=== PATIENT | female | born 1960 | race Caucasian/White ===

== ENCOUNTER 2024-08-02 11:54 | Inpatient (IN) | payer BC ==
[~2024-08-02] VITALS: Ht 149.9 cm; Wt 50.5 kg
[~2024-08-02 11:54] MED LIST: DOCU250C89 PO; GABA100C PO; LUBI24CA5 PO; SERT-153 PO
--- NOTE | 2024-08-02 12:04 | Physician Documentation ---
History of Present Illness ~ Stated Complaint: ARM LAC 5149 Time Seen by MD: 11:59 HPI 64-year-old female, noncompliant with her medications for psychiatric disease, brought in on 5150 legal called for suicidal ideation and attempt. She reports fallen with a head strike. Complains of head pain. She also reports that there is a laceration to the dorsum of her left forearm. She denies that being self inflicted. Denies any other somatic complaints such as chest pain, difficulty breathing, nausea, vomiting, diarrhea, abdominal pain. Social history unknown at this time Medication Reconciliation Allergies: Coded Allergies: Sulfa(Sulfonamide Antibiotics) (Verified Allergy, Mild, RASH, 03/03/12) Papaya (Verified Adverse Reaction, Severe, ANAPHYLACTIC, 03/03/12) Uncoded Allergies: BEES/WASPS (Adverse Reaction, Severe, ANAPHYLACTIC CARRIES EPI-PEN, 03/03/12) Scheduled Benztropine Mesylate (Benztropine Mesylate), 1 TAB PO DAILY, (Reported) Buspirone HCl (Buspirone HCl), 1 TAB PO TID, (Reported) Cariprazine Hydrochloride (Vraylar), 1 CAP PO DAILY, (Reported) Diazepam (Diazepam), 1-2 TAB PO DAILY, (Reported) Docusate Sodium (Stool Softener), 250 MG PO QAM, (Reported) Docusate Sodium (Docusate Sodium), 1 CAP PO Q12H, (Reported) Gabapentin (Neurontin), 200 MG PO BID, (Reported) Lisinopril (Lisinopril), 1 TAB PO DAILY, (Reported) Lubiprostone (Amitiza), 24 MCG PO QAM, (Reported) Metoprolol Tartrate (Metoprolol Tartrate), 0.5 TAB PO BID, (Reported) Sertraline HCl (Sertraline HCl), 50 MG PO QPM, (Reported) Sertraline Hcl (Zoloft), 1 TAB PO DAILY, (Reported) Sertraline Hcl* (Zoloft*), 1 TAB PO DAILY, (Reported) Triamterene/Hydrochlorothiazid (Triamterene-Hctz 37.5-25 Mg Tb), 1 TAB PO DAILY, (Reported) [vit d], 1,000 PO DAILY, (Reported) Scheduled PRN Diazepam (Diazepam), 1 TAB PO TID PRN PRN for anxiety, (Reported) Review of Systems ROS 10 point review of systems was performed and unless noted above in HPI is ne gative for acute process/complaint. Physical Exam Physical Exam GENERAL: Awake, alert, oriented, GCS 15, no apparent distress, non-toxic appearing, answers questions, follows commands appropriately. HEENT: Atraumatic, normocephalic, pupils equal, extraocular muscles intact, sclerae anicteric, mucus membranes moist, oropharynx is clear, no stridor. NECK: supple, full active range of motion, trachea midline, no thyromegaly, no lymphadenopathy, no JVD. CARDIOVASCULAR: regular rate/rhythm, no murmurs/gallops/rubs, Pulses are 2+ in all extremities and symmetric. Capillary refill less than 2 seconds. PULMONARY: Nonlabored, good air movement ,no respiratory distress, speaking in full sentences, clear to auscultation bilaterally, no wheezing, no ronchi, no rales, no accessory muscle use. GASTROINTESTINAL: Soft, non-tender, non-distended, normal active bowel sounds, no organomegaly, no pulsatile masses, no CVA tenderness. NEUROLOGIC: Lucid with normal mental status. Normal facial symmetry. Moves all extremities symmetrically and with purpose. No truncal ataxia. Speech is fluid without evidence of dysarthria or aphasia, no focal deficits appreciated. MUSCULOSKELETAL: There is full range of motion of all extremities. There is no joint pain or joint swelling or joint erythema. There is no muscle pain or tenderness or swelling. EXTREMITIES: warm, well-perfused, no cyanosis, no clubbing, no edema, no acute deformities. Skin: warm, dry, no rashes or lesions, no jaundice, no petechiae orpurpura. No ecchymosis. PSYCHIATRIC: Normal affect, normal insight, normal concentration. Focused exam: [] 2.5 cm laceration to the dorsum of her left forearm, no active bleeding, no contamination. Neurovascularly intact distally to the site of injury. No tendon involvement. Full range of motion of the wrist. Procedures Laceration : Length (cm): 2 Anesthesia: Lidocaine w/ Epi Volume Anesthetic (mls): 4 Prep: cholorprep, irrigated by nurse Undermining: none Repaired: skin Wound Repaired With: sutures Suture Size/Type: 3-0 Number of Superficial Sutures: 3 Progress Results/Orders Results/Orders Orders - SYED RIVERA DO Ct Head (08/02/24 12:46) Med Rec (08/02/24 11:59) 1799.11 (08/02/24 11:59) Close Observation Level (08/02/24 11:59) Covid19 Binax Poc Result Entry (08/02/24 11:59) Substance Use Navigator (08/02/24 11:59) Regular Diet (08/02/24 Dinner) Completed Orders - SYED RIVERA DO Ct Head (08/02/24 12:46) Lidocaine 1% W/Epi 1:100,000 (Xylocaine (08/02/24 12:00) Cbc/Diff (08/02/24 11:59) Drug Screen, Urine (08/02/24 11:59) Ethanol (08/02/24 11:59) BMP (08/02/24 11:59) Ua With Microscopic (08/02/24 12:44) Lorazepam Tablet (Ativan Tablet) (08/02/24 14:10) Medications Received in ER Medications (Trade) Dose Ordered Sig/Latoya Route PRN Reason Start Time Stop Time Status Last Admin Dose Admin (Xylocaine 1%-EPI 1:100,000) 20 ml ONCE ONCE SQ 08/02/24 12:00 08/02/24 12:15 DC 08/02/24 14:13 20 ML (Ativan tablet) 1 mg ONCE ONCE PO 08/02/24 14:10 08/02/24 14:11 DC 08/02/24 14:12 1 MG Vital Signs 08/02/24 08/02/24 12:23 13:13 Temp 98.2 Pulse 85 Resp 14 16 B/P (MAP) 107/68 Pulse Ox 99 O2 Flow Rate 0 Laboratory Tests Test 08/02/24 12:20 08/02/24 12:44 White Blood Count 12.0 H Red Blood Count 4.33 Hemoglobin 12.9 Hematocrit 37.9 Mean Corpuscular Volume 87.5 Mean Corpuscular Hemoglobin 29.8 Mean Corpuscular Hemoglobin Concent 34.1 Red Cell Distribution Width 13.5 Platelet Count 285 Mean Platelet Volume 7.7 Neutrophils (%) (Auto) 91.0 H Lymphocytes (%) (Auto) 4.0 L Monocytes (%) (Auto) 4.6 Eosinophils (%) (Auto) 0.1 Basophils (%) (Auto) 0.3 Neutrophils # (Auto) 10.9 H Lymphocytes # (Auto) 0.5 L Monocytes # (Auto) 0.6 Eosinophils # (Auto) 0.0 Basophils # (Auto) 0.0 CBC Comment Sodium Level 138 Potassium Level 3.1 L Chloride Level 99 Carbon Dioxide Level 32.4 H Anion Gap 7 L Blood Urea Nitrogen 20 H Creatinine 1.04 H Estimated GFR/1.73 m2 53 BUN/Creatinine Ratio 19.2 Glucose Level 156 H Calcium Level 9.0 Albumin 3.9 Chemistry Comments Ethyl Alcohol Level < 10 SARS-CoV-2 Antigen (Rapid) Negative Urine Specimen Description Cln catch midstream Urine Color Yellow Urine Clarity Slightly cloudy Urine pH 6.0 Urine Specific Massey 1.015 Urine Protein Negative Urine Glucose (UA) Negative Urine Ketones Negative Urine Occult Blood Trace-intact Urine Nitrite Negative Urine Bilirubin Negative Urine Urobilinogen 0.2 Urine Leukocyte Esterase Moderate H Urine RBC 0-2 Urine WBC 5-10 H Urine Squamous Epithelial Cells Moderate Urine Bacteria 1+ Urine Mucus Moderate Volume Urine Centrifuged 10 ml Urine Comment Urine Opiates Screen Negative Urine Methadone Screen Negative Urine Fentanyl Screen Negative Urine Barbiturates Screen Negative Urine Phencyclidine Screen Negative Urine Amphetamines Screen Negative Urine Benzodiazepines Screen Positive Urine Cocaine Screen Negative Urine Cannabinoids Screen Negative Drug Screen Comment Medical Decision Making Findings Facility Status: ED Holds, [facility] process The plan was discussed with the patient, who demonstrates clear understanding of the plan and is in agreement with the plan unless otherwise noted in the chart. All questions have been answered, all concerns were addressed unless otherwise documented. I was available throughout their ED stay for frequent reassessment and questions. Differential Diagnoses (considered and possible or likely): [Gravely disabled, suicidal ideation, suicidal attempt, forearm laceration, ground level fall, acute traumatic pain, closed head injury, concussion, subdural, subarachnoid] ??Differential Diagnoses (considered and unlikely, not requiring evaluation currently): [Unlikely to represent any other acute somatic complaint] MDM Data Please see HPI for the following: Independent Historians and external Records Review. Historian: [Patient] Independent Historians: ?[Mental health, EMS, record review] Medication Management: [Reviewed medication list] Social History and determinants: [Reviewed] Please see the body of the note for the following: Any independent interpretations of ECG, imaging studies. All vitals signs/haemodynamics, ordered tests were independently reviewed and interpreted by myself. Nursing triage complaint and vitals reviewed, additional nursing notes were reviewed as available and I agree unless otherwise noted or documented in contradiction in the chart Vital Signs: Independently reviewed Labs: Independently interpreted Imaging: Independently interpreted Old Medical Records: Independently reviewed, see HPI for relevant summary and information Pulse Oximetry: [99%] interpreted as [normal on room air] by me [Remote Broadcast Engineer: [Regular Rate, Regular rhythm, no ectopy, on EMS monitor. NSR] reviewed and interpreted by me] Additionally notably showing: [Hemodynamics reviewed. The patient is not tachycardic, not hypoxic, no evidence of respiratory distress. No evidence of hypotension. Laboratory workup is essentially unremarkable except for benzodiazepines which are iatrogenic. UA is contaminated a nondiagnostic for UTI. Imaging was obtained. CT head shows no acute intracranial process.] Tests considered but not ordered include: [Not applicable] Social Determinants of Health Impact: Patient was evaluated in [facility] [place] access to healthcare due to below par ratio of patient to medical providers. [] Comorbid Conditions Impacting Present Evaluation and Care/Treatment: [Psychiatric disease] Management Discussions with other Healthcare Providers: [Mental health professionals] Treatment and Disposition Medication Management (Given or considered): [Anxiety palliation]. See EMR for details Consideration for Hospitalization/Escalation/Deescalation of Care: Admission for observation has been considered, [however the patient is able to tolerate p.o., their symptoms are controlled, they are able to rely on oral medications, and their chief complaint/diagnosis can be managed on outpatient basis.] ?ED Course:?[Laceration was repaired. Patient is medically cleared for psychiatric evaluation.] ?Shared decision making:?[] Code status:?FULL Please see the full Electronic Medical Record for full details of nursing documentation, medications list, other records of complete past medical history and conditions, vital signs, laboratory studies, and any radiologic study interpretations by radiologists. Portions of this note were completed using Crystal IS dictation software and as a result there may exist minor errors in spelling. I have reviewed elements of past family and social history and agree as included in note. Departure Disposition: 30 STILL A PATIENT Impression: Primary Impression: Suicidal ideation Additional Impressions: Psychiatric disturbance Fall Closed head injury Forearm laceration Condition: Improved Referrals: NO PRIMARY CARE PROVIDER (PCP) Signature Scribe Signature: No scribe Attestation: This note accurately reflects clinical decisions, work performed by myself, DO MIGUEL Grande NICHOLAS M DO August 02, 2024 12:04
[2024-08-02 12:35] LABS: BASOPHILS % (AUTO) 0.3 % (0-1); EOSINOPHILS % (AUTO) 0.1 % (0-6); HEMATOCRIT 37.9 % (35.0-45.0); HEMOGLOBIN 12.9 g/dl (12.0-16.0); LYMPHOCYTES # (AUTO) 0.5 X10'3 (1.1-4.8); MEAN CORPUSCULAR HEMOGLOBIN 29.8 PG (27.0-31.0); MEAN CORPUSCULAR HGB CONC 34.1 g/dL (33.0-36.5); MEAN CORPUSCULAR VOLUME 87.5 FL (78-98); MEAN PLATELET VOLUME 7.7 FL (7.4-10.4); MONOCYTES # (AUTO) 0.6 X10'3 (0-0.9); MONOCYTES % (AUTO) 4.6 % (2-12); NEUTROPHILS # (AUTO) 10.9 X10'3 (1.8-7.7); PLATELET COUNT 285 X10'3 (140-440); RED BLOOD COUNT 4.33 X10'6 (4.20-5.60); RED CELL DISTRIBUTION WIDTH 13.5 % (11.5-14.5)
[2024-08-02 12:45] LABS: ALBUMIN 3.9 G/DL (3.4-5.0); ANION GAP 7 (8-16); BLOOD UREA NITROGEN 20 MG/DL (7-18); BUN/CREATININE RATIO 19.2 (10.0-20.0); CHLORIDE 99 MMOL/L (99-107); CREATININE 1.04 MG/DL (0.40-0.90); ETHANOL < 10 MG/DL (<10); GLUCOSE 156 MG/DL (70-104); POTASSIUM 3.1 MMOL/L (3.5-5.1); SODIUM 138 MMOL/L (135-145); TOTAL CARBON DIOXIDE 32.4 MMOL/L (24-32); eCRCL 37 ML/MIN; eGFR 53 ML/MIN
--- NOTE | 2024-08-02 13:04 | RADIOLOGY REPORT ---
EXAM: CT CT HEAD HISTORY: fall with head strike COMPARISON: None TECHNIQUE: Axial images of the head were obtained and reformatted in coronal and sagittal planes. All CT scans at this medical facility are performed using dose modulation techniques as appropriate t o a performed exam including the following: Automated exposure control was utilized; adjustment of th e MA and/or KV according to patient size; and use of iterative reconstruction technique. CT Dose: CTDI volume is 54 mGy. Dose-length product is 1102 mGy*cm FINDINGS: There is no evidence of acute intracranial hemorrhage, mass, mass effect midline shift. There is no h ydrocephalus or extra-axial fluid collection. Smith-white matter differentiation is maintained. There is a retention cyst in the right maxillary sinus. The remaining visualized paranasal sinuses an d mastoid air cells are clear. The calvarium is intact. IMPRESSION: 1. No acute intracranial process. HS:Y
[2024-08-02 13:07] LABS: BILIRUBIN,URINE NEGATIVE (Neg); COLOR,URINE YELLOW (Yellow); GLUCOSE, URINE NEGATIVE (Neg); KETONES,URINE NEGATIVE (Neg); LEUKOCYTE ESTERASE ,URINE MODERATE (Neg); NITRITES, URINE NEGATIVE (Neg); OCCULT BLOOD,URINE TRACE-INTACT (Neg); PROTEIN,URINE NEGATIVE (Neg); UROBILINOGEN,URINE 0.2 E.U/dL (0.2-1.0)
[2024-08-02 13:12] LABS: CLARITY,URINE SLIGHTLY CLOUDY (Clear); UA COLLECTION TYPE CLN CATCH MIDSTREAM
[2024-08-02] MEDS ORDERED: DOCU250C15 PO (13:12)
[2024-08-02] MEDS ORDERED: TRIA1TAB3 PO (13:12)
[2024-08-02] MEDS ORDERED: LISI20TA28 PO (13:12)
[2024-08-02] MEDS ORDERED: DIAZ10TA5 PO (13:12)
[2024-08-02] MEDS ORDERED: SERT100T PO (13:12)
[2024-08-02] MEDS ORDERED: BENZ1TAB78 PO (13:12)
[2024-08-02] MEDS ORDERED: METO25TA6 PO (13:12)
[2024-08-02] MEDS ORDERED: CARI3CAP PO (13:12)
[2024-08-02] MEDS ORDERED: SERT25TA PO (13:12)
[2024-08-02] MEDS ORDERED: DIAZ10TA4 PO (13:12)
[2024-08-02] MEDS ORDERED: vit d PO (13:12)
[2024-08-02] MEDS ORDERED: BUSP10TA3 PO (13:12)
[2024-08-02 13:14] LABS: BACTERIA,URINE 1+ /HPF (Neg); MUCUS STRANDS MODERATE /LPF (Neg); RBC,URINE 0-2 /HPF (0-2); SQUAMOUS EPITHELIAL CELL,UR MODERATE /LPF (FEW)
[2024-08-02 13:18] LABS: URINE AMPHETAMINE SCREEN NEGATIVE (Neg); URINE BARBITUATE SCREEN NEGATIVE (Neg); URINE BENZODIAZEPINES SCREEN POSITIVE (Neg); URINE CANNABINOID SCREEN NEGATIVE (Neg); URINE COCAINE SCREEN NEGATIVE (Neg); URINE METHADONE SCREEN NEGATIVE (Neg); URINE OPIATE SCREEN NEGATIVE (Neg); URINE PHENCYCLIDINE SCREEN NEGATIVE (Neg)
[2024-08-02] MEDS: LORazepam 1 MG tablet PO ONE (14:12)
[2024-08-02] MEDS: LIDOcaine 1% W/epiNEPHrine 1:100,000 20ml vial SQ ONE (14:13)
[2024-08-02] MEDS ORDERED: GABA300T28 PO (20:06)
[2024-08-02] MEDS ORDERED: GABA300C PO (21:36)
[2024-08-02] MEDS ORDERED: SERT-433 PO (21:38)
[2024-08-02] MEDS: metoprolol tartrate 12.5mg (1/2 tablet) PO SCH (22:06)
[2024-08-02] MEDS: busPIRone 5mg tablet PO SCH (22:07)
[2024-08-02] MEDS: docusate sod 250mg capsule PO SCH (22:07)
[2024-08-02] MEDS: sertraline 25mg tablet PO SCH (22:07)
[2024-08-03] MEDS: lisinopril 20mg tablet PO SCH (08:00)
[2024-08-03] MEDS: benztropine 1mg tablet PO SCH (08:00)
[2024-08-03] MEDS: gabapentin 300mg capsule PO SCH (08:00)
[2024-08-03] MEDS: Cariprazine Hydrochloride (Vraylar) 3 MG CAPSULE PO SCH (08:00)
[2024-08-03] MEDS: triamterene/HCTZ 37.5/25mg tablet PO SCH (08:00)
[2024-08-03] MEDS: diazepam 5mg tablet PO PRN (20:15)
[2024-08-04] MEDS: Melatonin 3mg tablet PO ONE (01:17)
[2024-08-04] MEDS: haloperidol lactate 5mg/ml inj IM ONE (01:20)
[2024-08-04] MEDS ORDERED: CefTRIAXone 1000mg IM Kit (w/lidocaine diluent) IM ONE (13:20)
[2024-08-04] MEDS ORDERED: magnesium Cl slow-release 64mg tablet PO PRN (13:50)
[2024-08-04] MEDS ORDERED: ondansetron/PF 4mg/2ml inj IV PRN (13:50)
[2024-08-04] MEDS ORDERED: magnesium hydroxide 30ml (MOM) UD suspension PO PRN (13:50)
[2024-08-04] MEDS ORDERED: potassium Cl 40MEQ/1/2NS 520ml 520 ML IV PRN (13:50)
[2024-08-04] MEDS ORDERED: potassium Cl 20 mEq SR tablet PO PRN (13:50)
[2024-08-04] MEDS ORDERED: magnesium sulf-water 2g/50mL 50 ML IV PRN (13:50)
[2024-08-04] MEDS ORDERED: mag hydrox/Alum hydrox/simeth 30ml oral suspension PO PRN (13:50)
[2024-08-04] MEDS ORDERED: acetaminophen 325mg tablet PO PRN (13:50)
[2024-08-04] MEDS ORDERED: magnesium sulf-water 4G/100mL 100 ML IV PRN (13:50)
--- NOTE | 2024-08-04 13:52 | HISTORY AND PHYSICAL ---
History & Physical Providers to CC ~ History of Present Illness Reason for Admit\Complaint: Suicidal ideation History of Present Illness History of present illness patient is a 64-year-old that is unable to give any significant history just keeps complaining about suprapubic pain pressure difficulty in ambulation denies any dysuria or polyuria has suicidal thoughts and wants to actively kill herself. Though she does not have a plan of how she is going to do this. Allergies: Coded Allergies: Sulfa(Sulfonamide Antibiotics) (Verified Allergy, Mild, RASH, 03/03/12) Papaya (Verified Adverse Reaction, Severe, ANAPHYLACTIC, 03/03/12) Uncoded Allergies: BEES/WASPS (Adverse Reaction, Severe, ANAPHYLACTIC CARRIES EPI-PEN, 03/03/12) Home Medications Home Medications Active Reported Lisinopril 20 Mg Tablet 0.5 Tab PO DAILY 30 Days Sertraline HCl 50 Mg Tablet 1.5 Tab PO HS [vit d] 1,000 PO DAILY Docusate Sodium 250 Mg Capsule 1 Cap PO Q12H 30 Days Triamterene-Hctz 37.5-25 Mg Tb (Triamterene/Hydrochlorothiazid) 37.5 Mg-25 Mg Tablet 1 Tab PO DAILY Metoprolol Tartrate 25 Mg Tablet 0.5 Tab PO BID Benztropine Mesylate 1 Mg Tablet 1 Tab PO DAILY Diazepam 10 Mg Tablet 1 Tab PO BID PRN Vraylar (Cariprazine Hydrochloride) 3 Mg Capsule 1 Cap PO DAILY Buspirone HCl 10 Mg Tablet 1 Tab PO TID Exam Vitals: Vital Signs Date Time Temp Pulse Resp B/P (MAP) Pulse Ox O2 Delivery O2 Flow Rate FiO2 08/04/24 10:08 98.0 92 16 94/61 (72) 99 0 General: Patient is alert and oriented x2 in no acute distress lying down comfortably speaking in full sentences HEENT normocephalic nontraumatic head PERRLA. EOMI. CVS first and second heart sounds are regular rate rhythm no murmurs gallops or rubs Respiratory system is clear to auscultate bilaterally no rales rhonchi crackles or wheezing Abdomen is soft scaphoid benign bowel sounds are positive nontender nondistended Extremities no clubbing cyanosis or edema Neurological exam patient is not willing to follow any commands but she is moving all four extremities without difficulty Diagnostic Data Last Recorded Lab Results: 08/02/24 1220 08/02/24 1220 Additional Plan A/P -UTI CON'T ROCEPHIN we will switch to oral antibiotics in a.m. CX PENDING --ALOC SI PSYCH CONSULT P Patient is put on a 1799 hold Sitter is in place Patient is medically cleared Pending [facility] DVT PROPHYLAXIS Date of Service: August 04, 2024 Billing Provider: SRIDHAR OCASIO MD Common Visit Codes: [id number] INP/OBS CARE (HIGH) SRIDHAR OCASIO MD August 04, 2024 13:52
[2024-08-04] MEDS: CefTRIAXone 2gm/D5W 50ml BAG 50 ML IV ONE (16:33)
[2024-08-04] MEDS: normal saline 1000ml 1,000 ML IV ONE (16:33)
[2024-08-04] MEDS: OLANZapine **IM** 10 mg inj. IM ONE (16:34)
[2024-08-04 16:54] LABS: BASOPHILS % (AUTO) 0.3 % (0-1); EOSINOPHILS % (AUTO) 0.3 % (0-6); HEMATOCRIT 34.9 % (35.0-45.0); HEMOGLOBIN 12.1 g/dl (12.0-16.0); LYMPHOCYTES # (AUTO) 0.7 X10'3 (1.1-4.8); LYMPHOCYTES % (AUTO) 9.2 % (21-51); MEAN CORPUSCULAR HEMOGLOBIN 30.3 PG (27.0-31.0); MEAN CORPUSCULAR HGB CONC 34.6 g/dL (33.0-36.5); MEAN CORPUSCULAR VOLUME 87.7 FL (78-98); MEAN PLATELET VOLUME 7.7 FL (7.4-10.4); MONOCYTES # (AUTO) 0.6 X10'3 (0-0.9); MONOCYTES % (AUTO) 7.6 % (2-12); NEUTROPHILS # (AUTO) 6.2 X10'3 (1.8-7.7); NEUTROPHILS % (AUTO) 82.6 % (42-75); PLATELET COUNT 241 X10'3 (140-440); RED BLOOD COUNT 3.98 X10'6 (4.20-5.60); RED CELL DISTRIBUTION WIDTH 13.2 % (11.5-14.5); WHITE BLOOD COUNT 7.5 X10'3 (4.5-11.0)
[2024-08-04 17:11] LABS: ALANINE AMINOTRANSFERASE 22 U/L (12-78); ALBUMIN 3.1 G/DL (3.4-5.0); ALBUMIN/GLOBULIN RATIO 1.2 (1.1-1.5); ALKALINE PHOSPHATASE 72 IU/L (46-116); ANION GAP 9 (8-16); ASPARTATE AMINO TRANSFERASE 51 U/L (10-37); BILIRUBIN,TOTAL 0.4 MG/DL (0.1-1.0); BLOOD UREA NITROGEN 13 MG/DL (7-18); BUN/CREATININE RATIO 17.1 (10.0-20.0); CALCIUM 7.5 MG/DL (8.5-10.1); CHLORIDE 105 MMOL/L (99-107); CREATININE 0.76 MG/DL (0.40-0.90); GLUCOSE 82 MG/DL (70-104); MAGNESIUM 1.9 MG/DL (1.5-2.4); SODIUM 140 MMOL/L (135-145); TOTAL PROTEIN 5.6 G/DL (6.4-8.2); eCRCL 51 ML/MIN; eGFR 77 ML/MIN
[2024-08-04 17:19] LABS: POTASSIUM 2.9 MMOL/L (3.5-5.1)
[2024-08-04] MEDS: K and/or MAG REPLACEMENT MC SCH (19:26)
[2024-08-04 20:00] VITALS: RESP 14
[2024-08-04] MEDS: potassium Cl 20 mEq SR tablet PO PRN (21:25)
[2024-08-04] MEDS: docusate sod 100mg capsule PO SCH (21:42)
[2024-08-04] MEDS: ringers solution, lacted 1,000 ML IV ONE (21:45)
[2024-08-04 22:00] VITALS: BP 131/75; PULSE 86; RESP 18; TEMP 98; O2SAT 100
[2024-08-05] VITALS (8 sets, daily range): BP systolic 89–129; BP diastolic 52–78; PULSE 69–93; RESP 14–18; TEMP 98.1–98.7; O2SAT 98–100
[2024-08-05 04:44] LABS: BASOPHILS % (AUTO) 0.8 % (0-1); EOSINOPHILS # (AUTO) 0.1 X10'3 (0-0.9); EOSINOPHILS % (AUTO) 1.8 % (0-6); HEMATOCRIT 30.9 % (35.0-45.0); HEMOGLOBIN 10.8 g/dl (12.0-16.0); LYMPHOCYTES # (AUTO) 0.9 X10'3 (1.1-4.8); LYMPHOCYTES % (AUTO) 22.2 % (21-51); MEAN CORPUSCULAR HEMOGLOBIN 30.5 PG (27.0-31.0); MEAN CORPUSCULAR HGB CONC 34.9 g/dL (33.0-36.5); MEAN CORPUSCULAR VOLUME 87.4 FL (78-98); MEAN PLATELET VOLUME 7.4 FL (7.4-10.4); MONOCYTES # (AUTO) 0.5 X10'3 (0-0.9); MONOCYTES % (AUTO) 11.5 % (2-12); NEUTROPHILS # (AUTO) 2.5 X10'3 (1.8-7.7); NEUTROPHILS % (AUTO) 63.7 % (42-75); PLATELET COUNT 213 X10'3 (140-440); RED BLOOD COUNT 3.54 X10'6 (4.20-5.60); RED CELL DISTRIBUTION WIDTH 13.1 % (11.5-14.5); WHITE BLOOD COUNT 3.9 X10'3 (4.5-11.0)
[2024-08-05 05:06] LABS: ALANINE AMINOTRANSFERASE 22 U/L (12-78); ALBUMIN 2.8 G/DL (3.4-5.0); ALBUMIN/GLOBULIN RATIO 1.1 (1.1-1.5); ALKALINE PHOSPHATASE 71 IU/L (46-116); ANION GAP 6 (8-16); ASPARTATE AMINO TRANSFERASE 39 U/L (10-37); BILIRUBIN,TOTAL 0.4 MG/DL (0.1-1.0); BLOOD UREA NITROGEN 9 MG/DL (7-18); BUN/CREATININE RATIO 12.5 (10.0-20.0); CHLORIDE 110 MMOL/L (99-107); CREATININE 0.72 MG/DL (0.40-0.90); GLUCOSE 81 MG/DL (70-104); MAGNESIUM 1.9 MG/DL (1.5-2.4); POTASSIUM 3.7 MMOL/L (3.5-5.1); SODIUM 145 MMOL/L (135-145); TOTAL CARBON DIOXIDE 28.6 MMOL/L (24-32); TOTAL PROTEIN 5.3 G/DL (6.4-8.2); eCRCL 54 ML/MIN; eGFR 82 ML/MIN
[2024-08-05] MEDS: CefTRIAXone/D5W-Rocephin 1gm 50 ML IV SCH (08:45)
[2024-08-05] MEDS: enoxaparin 40mg/0.4ml syringe SUBCUT SCH (08:46)
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
[2024-08-05] MEDS: normal saline 500ml IV soln 500 ML IV ONE (12:04)
--- NOTE | 2024-08-05 16:16 | [facility] CONSULT REPORT ---
[facility] Procedure Note [facility] Procedure Note Consult [facility] Note # Demographics Consult Type: General Neurology Patient Location: Inpatient First Name: Linn Last Name: David Date of : 1960 Age: 64 Gender: Female Facility: [facility] Time of Initial Page ([place] ): 08/05/2024 14:51 Time of Return Call ([place] Time): 08/05/2024 14:53 # HPI History: 64yof with anxiety who p/w altered mental status. She has been receiving several psychiatry treatments but her mental status has been worsening since December and thus concern for underlying dementia. No family at bedside currently. # Exam Time of Exam ([place] ): 08/05/2024 16:12 Vitals: vital signs reviewed Mental Status: - awake - alert and oriented x 3 - follows commands Language: - normal speech - no aphasia Cranial Nerves: - normal - extra ocular movements intact Motor: - normal strength Sensory: - normal sensation # Assessment Impression: Unable to properly diagnose dementia while inpatient or without family at bedside. Recommend she follow with outpatient neuro for further evaluation # Plan Labs: B12, folate, thyroid, thiamine, and full infectious and metabolic workup for AMS Imaging: (urgency: routine): MR brain w and wo contrast if able, however, pt complaining of significant anxiety so if unable also reasonable to obtain as an outpatient given chronicity of symptoms and also no focal deficits on my exam Other: - If patient has any neurological deterioration please call me back immediately - would not pursue stroke work-up if MRI is negative - neurology referral as outpatient Additional Recommendations: Psych consult # Logistics Attestation of consult completion: The patient is located at: [facility]. Facility staff participated in the visit. I performed this telemedicine visit from my offsite office utilizing interactive 2 way audio and visual telecommunication technology. Total time spent in telemedicine encounter: I spent 24 minutes reviewing clinical data and/or imaging, obtaining history, examining the patient, communicating with the onsite care team, and in preparation of this report. # Demographics First Name: Linn Last Name: David Facility: [facility] Neuro Consult Order placed for: Yes RAVEN FROST MD August 05, 2024 16:16
[2024-08-05] MEDS: HYDROcodone/acetaminophen 5mg/325mg tablet PO PRN (21:57)
[2024-08-06 06:12] LABS: BASOPHILS % (AUTO) 0.8 % (0-1); EOSINOPHILS % (AUTO) 0.8 % (0-6); HEMATOCRIT 32.4 % (35.0-45.0); HEMOGLOBIN 11.4 g/dl (12.0-16.0); LYMPHOCYTES # (AUTO) 0.9 X10'3 (1.1-4.8); LYMPHOCYTES % (AUTO) 19.1 % (21-51); MEAN CORPUSCULAR HEMOGLOBIN 30.6 PG (27.0-31.0); MEAN CORPUSCULAR HGB CONC 35.3 g/dL (33.0-36.5); MEAN CORPUSCULAR VOLUME 86.7 FL (78-98); MEAN PLATELET VOLUME 7.7 FL (7.4-10.4); MONOCYTES # (AUTO) 0.4 X10'3 (0-0.9); NEUTROPHILS # (AUTO) 3.2 X10'3 (1.8-7.7); NEUTROPHILS % (AUTO) 70.3 % (42-75); PLATELET COUNT 222 X10'3 (140-440); RED BLOOD COUNT 3.73 X10'6 (4.20-5.60); RED CELL DISTRIBUTION WIDTH 13.3 % (11.5-14.5); WHITE BLOOD COUNT 4.6 X10'3 (4.5-11.0)
[2024-08-06 06:29] VITALS: BP 129/83; PULSE 83; RESP 14; TEMP 98.3; O2SAT 96
[2024-08-06 06:31] LABS: ALANINE AMINOTRANSFERASE 25 U/L (12-78); ALBUMIN 2.8 G/DL (3.4-5.0); ALKALINE PHOSPHATASE 75 IU/L (46-116); ANION GAP 6 (8-16); ASPARTATE AMINO TRANSFERASE 40 U/L (10-37); BILIRUBIN,TOTAL 0.3 MG/DL (0.1-1.0); BLOOD UREA NITROGEN 12 MG/DL (7-18); BUN/CREATININE RATIO 13.5 (10.0-20.0); CALCIUM 8.1 MG/DL (8.5-10.1); CHLORIDE 107 MMOL/L (99-107); CREATININE 0.89 MG/DL (0.40-0.90); GLUCOSE 92 MG/DL (70-104); POTASSIUM 3.5 MMOL/L (3.5-5.1); SODIUM 142 MMOL/L (135-145); TOTAL CARBON DIOXIDE 29.2 MMOL/L (24-32); TOTAL PROTEIN 5.6 G/DL (6.4-8.2); eCRCL 44 ML/MIN; eGFR 64 ML/MIN
[2024-08-06 08:00] VITALS: RESP 14
[2024-08-06 09:09] VITALS: BP_SYST 122; PULSE 74
--- NOTE | 2024-08-06 10:45 | DISCHARGE SUMMARY ---
Discharge Summary Providers to CC ~ Discharge Summary Admission Diagnosis: uti, aloc Hospital Course DATE OF ADMISSION: 08/04/2024 DATE OF DISCHARGE: 08/06/2024 Discharge Diagnosis\Comment: Suicidal ideation depression questionable underlying dementia UTI Operations\Procedures: None Consultants: Tele Psychiatry tele Neurology and [facility] Complications: None Condition on DC: Stable Continued Medications: Benztropine Mesylate (Benztropine Mesylate) 1 Mg Tablet 1 TAB PO DAILY Buspirone HCl (Buspirone HCl) 10 Mg Tablet 1 TAB PO TID Cariprazine Hydrochloride (Vraylar) 3 Mg Capsule 1 CAP PO DAILY for depressive disorder Diazepam (Diazepam) 10 Mg Tablet 1 TAB PO BID PRN for for anxiety/agitation Docusate Sodium (Docusate Sodium) 250 Mg Capsule 1 CAP PO Q12H for constipation for 30 Days, #60 CAP 0 Refills Lisinopril (Lisinopril) 20 Mg Tablet 0.5 TAB PO DAILY for 30 Days, #30 TAB Metoprolol Tartrate (Metoprolol Tartrate) 25 Mg Tablet 0.5 TAB PO BID Sertraline HCl (Sertraline HCl) 50 Mg Tablet 1.5 TAB PO HS for depressive disorder Triamterene/Hydrochlorothiazid (Triamterene-Hctz 37.5-25 Mg Tb) 37.5 Mg-25 Mg Tablet 1 TAB PO DAILY [vit d] () 1000 PO DAILY Discharge Summary: Patient is a 64-year-old that was in the ER for two days with questionable suicidal ideation admitted to my service for UTI with questionable underlying metabolic encephalopathy Reason for Admit\Complaint: Suicidal ideation History of Present Illness History of present illness patient is a 64-year-old that is unable to give any significant history just keeps complaining about suprapubic pain pressure diffi culty in ambulation denies any dysuria or polyuria has suicidal thoughts and wants to actively kill herself. Though she does not have a plan of how she is going to do this. Physical exam patient is alert and oriented in no acute distress lying down comfortably speaking in full sentences HEENT normocephalic nontraumatic head PERRLA. EOMI. CVS first and second heart sounds are regular rate rhythm no murmurs gallops or rubs Respiratory system is clear to auscultate bilaterally no rales rhonchi crackles or wheezing Abdomen is soft bowel sounds are positive nontender nondistended Extremities no clubbing cyanosis or edema Hospital course patient is a 64-year-old that has some underlying psych disorder and questionable dementia. This is not a complete history that I am getting from the who is also not sure about the patient's underlying medical issues. Patient was thought to have a questionable UTI and was given IV antibiotics for two days who ceftriaxone cultures were negative this was discontinued. She initially had suicidal ideation which have resolved she has been seen by [facility] and been cleared off of the 5150 off of the 179 and is being discharged home with . Patient is advised to follow with PCP Neurology and is well psychiatry. *Problems/Diagnosis: (1) UTI (urinary tract infection) Status: Acute (2) Suicidal ideation Status: Acute (3) Psychiatric disturbance Status: Acute Total Time Spent on D/C: > 30 Minutes Date of Service: August 06, 2024 Billing Provider: SRIDHAR OCASIO MD Common Visit Codes: [id number]/OBS DISCH DAY >30min SRIDHAR OCASIO MD August 06, 2024 10:45
== END 2024-08-06 13:56 | disposition home or self-care (01) | DRG 689 ==
LOC: ER 11:55 → ED HOLD 08-04 13:50 → SUR 3N 08-04 17:57
PROVIDERS: ADMIT Internal Medicine; ATTEND Internal Medicine
PROC: 0HQEXZZ Repair Left Lower Arm Skin, External Approach (ICD-10-PCS; principal; 2024-08-02)
DX: N39.0 Urinary tract infection, site not specified (principal); G93.41 Metabolic encephalopathy; F23 Brief psychotic disorder; R45.851 Suicidal ideations; F41.9 Anxiety disorder, unspecified; F03.90 Unspecified dementia, unspecified severity, without behavioral disturbance, psychotic disturbance, mood disturbance, and anxiety; S09.90XA Unspecified injury of head, initial encounter; X58.XXXA Exposure to other specified factors, initial encounter; S51.811A Laceration without foreign body of right forearm, initial encounter; Z88.2 Allergy status to sulfonamides; Z91.148 Patient's other noncompliance with medication regimen for other reason; Y93.89 Activity, other specified; Y92.89 Other specified places as the place of occurrence of the external cause; Y99.8 Other external cause status
CPT/HCPCS: 12001; 12002; 36415; 70450; 80048; 80053; 80305; 80320; 81001; 83735; 85025; 87081; 87811; 97161; 97530; 99285; G0378; J0696; J1630; J1650; J3490; J7030; J7040; J7120

== ENCOUNTER 2024-08-09 14:41 | Emergency (ER) | payer BC ==
[~2024-08-09] VITALS: Ht 149.9 cm; Wt 47.0 kg
[~2024-08-09 14:41] MED LIST changes: +BENZ1TAB78 PO; +BUSP10TA3 PO; +CARI3CAP PO; +DIAZ10TA5 PO; +DOCU250C15 PO; -DOCU250C89 PO; -GABA100C PO; +LISI20TA28 PO; -LUBI24CA5 PO; +METO25TA6 PO; -SERT-153 PO; +SERT-433 PO; +TRIA1TAB3 PO; +vit d PO
[2024-08-09 14:56] VITALS: BP 134/89; PULSE 83; RESP 15; O2SAT 100
--- NOTE | 2024-08-09 15:05 | Physician Documentation ---
History of Present Illness ~ Stated Complaint: MULTIPLE MED COMPLAINTS Time Seen by MD: 15:21 HPI Female who was recently seen here at the [facility] ED for psychiatric disturbances was also recently admitted for a urinary tract infection and then released. Her spouse brings her to the ED with ongoing concerns about her paranoid delusions. Patient is A&O x4 but has poor insight currently. states, she is here to have the sutures removed in her left arm. Day of Onset: August 09, 2024 Medication Reconciliation Allergies: Coded Allergies: Sulfa(Sulfonamide Antibiotics) (Verified Allergy, Mild, RASH, 03/03/12) Papaya (Verified Adverse Reaction, Severe, ANAPHYLACTIC, 03/03/12) Uncoded Allergies: BEES/WASPS (Adverse Reaction, Severe, ANAPHYLACTIC CARRIES EPI-PEN, 03/03/12) Scheduled Benztropine Mesylate (Benztropine Mesylate), 1 TAB PO DAILY, (Reported) Buspirone HCl (Buspirone HCl), 1 TAB PO TID, (Reported) Cariprazine Hydrochloride (Vraylar), 1 CAP PO DAILY, (Reported) Cephalexin*Monohydrate* (Keflex*), 1 CAP PO QID Docusate Sodium (Docusate Sodium), 1 CAP PO Q12H, (Reported) Lisinopril (Lisinopril), 0.5 TAB PO DAILY, (Reported) Metoprolol Tartrate (Metoprolol Tartrate), 0.5 TAB PO BID, (Reported) Quetiapine Fumarate* (Seroquel*), 1 TAB PO HS Sertraline HCl (Sertraline HCl), 1.5 TAB PO HS, (Reported) Triamterene/Hydrochlorothiazid (Triamterene-Hctz 37.5-25 Mg Tb), 1 TAB PO DAILY, (Reported) [vit d], 1,000 PO DAILY, (Reported) Scheduled PRN Diazepam (Diazepam), 1 TAB PO BID PRN for for anxiety/agitation, (Reported) Discontinued Medications Diazepam (Diazepam), 1 TAB PO TID PRN PRN for anxiety, (Reported) Discontinued Reason: patient no longer taking Docusate Sodium (Stool Softener), 250 MG PO QAM, (Reported) Discontinued Reason: patient no longer taking Gabapentin (Neurontin), 200 MG PO BID, (Reported) Discontinued Reason: patient no longer taking Gabapentin (Neurontin), 1 CAP PO DAILY, (Reported) Discontinued Reason: patient no longer taking Lisinopril (Lisinopril), 1 TAB PO DAILY, (Reported) Discontinued Reason: Other Lubiprostone (Amitiza), 24 MCG PO QAM, (Reported) Discontinued Reason: patient no longer taking Sertraline HCl (Sertraline HCl), 50 MG PO QPM, (Reported) Discontinued Reason: patient no longer taking Sertraline Hcl (Zoloft), 1 TAB PO DAILY, (Reported) Discontinued Reason: Other Sertraline Hcl* (Zoloft*), 1 TAB PO DAILY, (Reported) Discontinued Reason: ADR (Adverse Drug Rxn) Review of Systems All Other Systems at this time: Reviewed and Negative ROS As stated above in the HPI, otherwise all systems are reviewed and negative. Physical Exam Physical Exam General: Alert, no apparent distress. HEENT: PERRL, EOMI, no injection, moist mucous membranes. Neck: Full range of motion. Respiratory: Lungs clear, no respiratory distress. Chest: No accessory muscle use. Cardiovascular: Regular rate and rhythm, no murmurs. Gastrointestinal: Soft, nontender, nondistended. Bowels sounds present. Extremities: Normal range of motion, no deformity. Neurologic: Oriented x4. Psychiatric: Normal mood and affect. Skin: Normal color, warm and dry. No edema, no ecchymosis. Progress Results/Orders Results/Orders Orders - CHAVA MUSA BUSINESS OFFICE MANAGER Cult Urine + [address] (08/09/24 16:41) Completed Orders - CHAVA MUSA BUSINESS OFFICE MANAGER Hcg, Ur Ql (08/09/24 15:06) Cbc/Diff (08/09/24 15:06) BMP (08/09/24 15:06) Lipase (08/09/24 15:06) CMP (08/09/24 15:06) Diazepam Tablet (Valium Tablet) (08/09/24 16:15) Ua W/Microscopic, Cult If Ind (08/09/24 15:57) Medications Received in ER Medications (Trade) Dose Ordered Sig/Latoya Route PRN Reason Start Time Stop Time Status Last Admin Dose Admin (Valium tablet) 10 mg ONCE ONCE PO 08/09/24 16:15 08/09/24 16:22 DC 5/27/25 16:26 10 MG Vital Signs 08/09/24 08/09/24 14:56 17:07 Temp 97.8 97.8 Pulse 83 Resp 15 B/P (MAP) 134/89 Pulse Ox 100 O2 Flow Rate 0 Laboratory Tests Test 08/09/24 15:17 08/09/24 15:57 White Blood Count 6.6 Red Blood Count 3.91 L Hemoglobin 11.7 L Hematocrit 34.8 L Mean Corpuscular Volume 88.9 Mean Corpuscular Hemoglobin 29.9 Mean Corpuscular Hemoglobin Concent 33.7 Red Cell Distribution Width 13.4 Platelet Count 293 Mean Platelet Volume 7.6 Neutrophils (%) (Auto) 81.6 H Lymphocytes (%) (Auto) 8.4 L Monocytes (%) (Auto) 9.3 Eosinophils (%) (Auto) 0.4 Basophils (%) (Auto) 0.3 Neutrophils # (Auto) 5.4 Lymphocytes # (Auto) 0.6 L Monocytes # (Auto) 0.6 Eosinophils # (Auto) 0.0 Basophils # (Auto) 0.0 CBC Comment Sodium Level 141 Potassium Level 4.1 Chloride Level 105 Carbon Dioxide Level 31.7 Anion Gap 4 L Blood Urea Nitrogen 15 Creatinine 0.90 Estimated GFR/1.73 m2 63 BUN/Creatinine Ratio 16.7 Glucose Level 96 Calcium Level 8.4 L Total Bilirubin 0.2 Aspartate Amino Transf (AST/SGOT) 28 Alanine Aminotransferase (ALT/SGPT) 31 Alkaline Phosphatase 92 Total Protein 6.6 Albumin 3.5 Globulin 3.1 Albumin/Globulin Ratio 1.1 Lipase 23 Chemistry Comments Urine Specimen Description Cln catch midstream Urine Color Yellow Urine Clarity Clear Urine pH 6.0 Urine Specific [place] 1.015 Urine Protein Negative Urine Glucose (UA) Negative Urine Ketones Negative Urine Occult Blood Trace-intact Urine Nitrite Negative Urine Bilirubin Negative Urine Urobilinogen 0.2 Urine Leukocyte Esterase Small H Urine RBC 3-10 Urine WBC 5-10 H Urine Squamous Epithelial Cells Few Urine Bacteria Few Urine Mucus Moderate Urine Culture Indicated Indicated Volume Urine Centrifuged 10 ml Urine HCG, Qualitative Negative Urine Comment Microbiology Date/Time Source Procedure Growth Status 08/09/24 16:41 Urine Clean Catch Midstream Urine Culture - Preliminary Culture received. Resulted Medical Decision Making Findings I spoke to the patient and her at length about helping the patient with her panic disorder and anxiety. In addition does appear that she has an ongoing minor UTI so we will treat that as well. Start her on Seroquel and discharged with Keflex I did offer admission but they declined Differential Dx:Considerations: Include: Alcohol abuse, Anxiety, Bipolar disorder, Conversion disorder, Depression, Encephaloathy, Homicidal, Panic disorder, Personality disorder, Schizophrenia, Substance abuse, Suicidal, Other Departure Disposition: 01 HOME / SELF CARE / HOMELESS Impression: Primary Impression: UTI (urinary tract infection) Additional Impression: Acute anxiety Condition: Stable Referrals: NO PRIMARY CARE PROVIDER (PCP) Prescriptions Cephalexin*Monohydrate* (Keflex*) 500 Mg Capsule 1 CAP PO QID, #40 CAP Prov: CHAVA MUSA NP 08/09/24 Quetiapine Fumarate* (Seroquel*) 100 Mg Tablet 1 TAB PO HS for 30 Days, #30 TAB Prov: CHAVA MUSA BUSINESS OFFICE MANAGER 08/09/24 Signature Scribe Signature: h Attestation: The note accurately reflects work and decisions made by me.Chava Jaimes NP 08/09/24 23:49 CHAVA MUSA NP August 09, 2024 15:05
[2024-08-09 15:37] LABS: BASOPHILS % (AUTO) 0.3 % (0-1); EOSINOPHILS % (AUTO) 0.4 % (0-6); HEMATOCRIT 34.8 % (35.0-45.0); HEMOGLOBIN 11.7 g/dl (12.0-16.0); LYMPHOCYTES # (AUTO) 0.6 X10'3 (1.1-4.8); LYMPHOCYTES % (AUTO) 8.4 % (21-51); MEAN CORPUSCULAR HEMOGLOBIN 29.9 PG (27.0-31.0); MEAN CORPUSCULAR HGB CONC 33.7 g/dL (33.0-36.5); MEAN CORPUSCULAR VOLUME 88.9 FL (78-98); MEAN PLATELET VOLUME 7.6 FL (7.4-10.4); MONOCYTES # (AUTO) 0.6 X10'3 (0-0.9); MONOCYTES % (AUTO) 9.3 % (2-12); NEUTROPHILS # (AUTO) 5.4 X10'3 (1.8-7.7); NEUTROPHILS % (AUTO) 81.6 % (42-75); PLATELET COUNT 293 X10'3 (140-440); RED BLOOD COUNT 3.91 X10'6 (4.20-5.60); RED CELL DISTRIBUTION WIDTH 13.4 % (11.5-14.5); WHITE BLOOD COUNT 6.6 X10'3 (4.5-11.0)
[2024-08-09 15:52] LABS: ALANINE AMINOTRANSFERASE 31 U/L (12-78); ALBUMIN 3.5 G/DL (3.4-5.0); ALBUMIN/GLOBULIN RATIO 1.1 (1.1-1.5); ALKALINE PHOSPHATASE 92 IU/L (46-116); ANION GAP 4 (8-16); ASPARTATE AMINO TRANSFERASE 28 U/L (10-37); BILIRUBIN,TOTAL 0.2 MG/DL (0.1-1.0); BLOOD UREA NITROGEN 15 MG/DL (7-18); BUN/CREATININE RATIO 16.7 (10.0-20.0); CALCIUM 8.4 MG/DL (8.5-10.1); CHLORIDE 105 MMOL/L (99-107); GLUCOSE 96 MG/DL (70-104); LIPASE 23 U/L (16-77); POTASSIUM 4.1 MMOL/L (3.5-5.1); SODIUM 141 MMOL/L (135-145); TOTAL CARBON DIOXIDE 31.7 MMOL/L (24-32); TOTAL PROTEIN 6.6 G/DL (6.4-8.2); eCRCL 43 ML/MIN; eGFR 63 ML/MIN
[2024-08-09 16:18] LABS: BILIRUBIN,URINE NEGATIVE (Neg); CLARITY,URINE CLEAR (Clear); COLOR,URINE YELLOW (Yellow); GLUCOSE, URINE NEGATIVE (Neg); KETONES,URINE NEGATIVE (Neg); LEUKOCYTE ESTERASE ,URINE SMALL (Neg); NITRITES, URINE NEGATIVE (Neg); OCCULT BLOOD,URINE TRACE-INTACT (Neg); PROTEIN,URINE NEGATIVE (Neg); UROBILINOGEN,URINE 0.2 E.U/dL (0.2-1.0)
[2024-08-09 16:26] LABS: URINE HCG NEGATIVE (NEG)
[2024-08-09] MEDS: diazepam 5mg tablet PO ONE (16:26)
[2024-08-09 16:35] LABS: UA COLLECTION TYPE CLN CATCH MIDSTREAM
[2024-08-09 16:36] LABS: SQUAMOUS EPITHELIAL CELL,UR FEW /LPF (FEW)
[2024-08-09 16:37] LABS: MUCUS STRANDS MODERATE /LPF (Neg)
[2024-08-09 16:40] LABS: BACTERIA,URINE FEW /HPF (Neg)
[2024-08-09] MEDS ORDERED: QUET-1 PO (16:48)
[2024-08-09] MEDS ORDERED: CEPH-585 PO (16:48)
[2024-08-09 17:07] VITALS: TEMP 97.8
== END 2024-08-09 17:10 | disposition home or self-care (01) ==
LOC: ER 14:41
DX: N39.0 Urinary tract infection, site not specified (principal); F41.9 Anxiety disorder, unspecified; F22 Delusional disorders; Z79.899 Other long term (current) drug therapy; Z88.2 Allergy status to sulfonamides
CPT/HCPCS: 36415; 80053; 81001; 81025; 83690; 85025; 87088; 99283

== ENCOUNTER 2024-12-15 17:34 | Inpatient (IN) | payer BC ==
[~2024-12-15] VITALS: Ht 160 cm; Wt 53.0 kg
[~2024-12-15 17:34] MED LIST changes: -BENZ1TAB78 PO; -BUSP10TA3 PO; -CARI3CAP PO; -LISI20TA28 PO; -METO25TA6 PO; -TRIA1TAB3 PO
--- NOTE | 2024-12-15 18:02 | Physician Documentation ---
History of Present Illness ~ Chief Complaint: See Chief Complaint Stated Complaint: SI Time Seen by MD: 17:53 Mode of Arrival: EMS HPI 64-year-old female presents to the ED with concerns over increased agitation over the last week. She normally stays at [facility]. According to her who is her POA he wanted her brought to the hospital for evaluation as she has unable to redirect at her facility. She denies any physical symptoms but reports that she is just having a panic attack Day of Onset: Dec 15, 2024 Medication Reconciliation Allergies: Coded Allergies: Sulfa (Sulfonamide Antibiotics) (Verified Allergy, Mild, RASH, 03/03/12) cephalexin (Unverified Allergy, Mild, rash, 08/19/24) papaya (Verified Adverse Reaction, Severe, ANAPHYLACTIC, 03/03/12) Uncoded Allergies: BEES/WASPS (Adverse Reaction, Severe, ANAPHYLACTIC CARRIES EPI-PEN, 03/03/12) Scheduled Docusate Sodium (Docusate Sodium), 1 CAP PO Q12H, (Reported) Nitrofurantoin Macrocrystal (Nitrofurantoin), 1 CAP PO Q12H Sertraline HCl (Sertraline HCl), 3 TAB PO HS, (Reported) [vit d], 1,000 PO DAILY, (Reported) Scheduled PRN Diazepam (Diazepam), 1 TAB PO BID PRN for for anxiety/agitation, (Reported) Past Medical History Past Medical History: Hypertension, UTI, *PSYCH* Past Surgical History: orthopedic surgeries Patient History: Patient reports no known family medical history. Alcohol Use: Sober Drug Use: none Lives with: Spouse Lives In: Home Occupation: disabled Physical Exam Vital Signs: Temperature: 98.5, Source: Oral, Respiratory Rate: 18, BP: 133/79, Pulse Oximetry: 95, Weight: 53.000 Physical Exam General: Alert, no apparent distress. Respiratory: Lungs clear, no respiratory distress. Cardiovascular: Regular rate and rhythm, no murmurs. Gastrointestinal: Soft, nontender, nondistended. Bowels sounds present. Neurologic: Oriented x4. Agitated not easily redirectable Psychiatric: Normal mood and affect. Skin: Normal color, warm and dry. No edema, no ecchymosis. Progress Results/Orders Results/Orders Orders - CHAVA MUSA COUNTER FORMER Culture Blood (12/15/24 17:53) Chest,Single View (12/15/24 17:53) Monitor (12/15/24 17:53) Saline Lock (12/15/24 17:53) Straight Cath For Urine Sample (12/15/24 17:53) Cult Urine + [address] (12/15/24 20:21) Ceftriaxone 2gm/D5w 50ml Bag (Rocephin 2 (12/15/24 20:40) Page Hospitalist (12/15/24 ) Completed Orders - CHAVA MUSA COUNTER FORMER Cbc/Diff (12/15/24 17:53) Chest,Single View (12/15/24 17:53) Procalcitonin (12/15/24 17:53) BMP (12/15/24 17:53) Lacticsepsis (12/15/24 17:53) Hydroxyzine Tablet (Atarax Tablet) (12/15/24 18:35) Ua W/Microscopic, Cult If Ind (12/15/24 19:51) Haloperidol Lact. (Haldol) (12/15/24 20:35) Medications Received in ER Medications (Trade) Dose Ordered Sig/Latoya Route PRN Reason Start Time Stop Time Status Last Admin Dose Admin (Atarax tablet) 25 mg ONCE ONCE PO 12/15/24 18:35 12/15/24 18:37 DC 12/15/24 18:40 25 MG Vital Signs 12/15/24 12/15/24 12/15/24 12/15/24 17:38 17:47 19:33 19:35 Temp 98.5 Pulse 80 Resp 18 18 16 16 B/P (MAP) 133/79 155/91 (112) Pulse Ox 95 99 Laboratory Tests Test 12/15/24 18:22 12/15/24 19:51 White Blood Count 5.2 Red Blood Count 4.07 L Hemoglobin 12.0 Hematocrit 35.8 Mean Corpuscular Volume 87.9 Mean Corpuscular Hemoglobin 29.5 Mean Corpuscular Hemoglobin Concent 33.5 Red Cell Distribution Width 14.4 Platelet Count 225 Mean Platelet Volume 7.5 Neutrophils (%) (Auto) 70.8 Lymphocytes (%) (Auto) 16.6 L Monocytes (%) (Auto) 10.5 Eosinophils (%) (Auto) 1.5 Basophils (%) (Auto) 0.6 Neutrophils # (Auto) 3.7 Lymphocytes # (Auto) 0.9 L Monocytes # (Auto) 0.5 Eosinophils # (Auto) 0.1 Basophils # (Auto) 0.0 CBC Comment Sodium Level 143 Potassium Level 3.7 Chloride Level 106 Carbon Dioxide Level 30.2 Anion Gap 7 L Blood Urea Nitrogen 21 H Creatinine 0.98 H Estimated GFR/1.73 m2 57 BUN/Creatinine Ratio 21.4 H Glucose Level 110 H Lactic Acid Level 0.7 Calcium Level 8.5 Albumin 3.5 Procalcitonin < 0.05 Chemistry Comments Urine Specimen Description Straight cath Urine Color Straw Urine Clarity Clear Urine pH 7.0 Urine Specific [place] 1.010 Urine Protein Negative Urine Glucose (UA) Negative Urine Ketones Negative Urine Occult Blood Negative Urine Nitrite Negative Urine Bilirubin Negative Urine Urobilinogen 0.2 Urine Leukocyte Esterase Large H Urine RBC 0-2 Urine WBC 5-10 H Urine WBC Clumps Few Urine Squamous Epithelial Cells Few Urine Bacteria 1+ Urine Culture Indicated Indicated Volume Urine Centrifuged 10 ml Urine Comment Microbiology Date/Time Source Procedure Growth Status 12/15/24 18:27 Blood Arm Left Blood Culture - Preliminary NEGATIVE (LESS THAN 24 HOURS) Resulted Medical Decision Making Findings Patient continues to behave in an agitated fashion. She did test positive for a urinary tract infection she does not have signs of of SIRS or sepsis he had I am going to start her on ceftriaxone give her some fluids and admit her to the hospital for urinary tract and metabolic encephalopathy Differential Dx:Considerations: Include: dehydration, Delirium Tr., DKA, encephalopathy, hypercalcemia, HHNC, hypoglycemia, hypernatremia, hyponatremia, hypoxia, postictal, closed head injury, C-spine injury, CVA, mass lesion, subarachnoid hemorrhage, drug overdose, encephalopathy, ETOH intoxication, medication toxicity, infection - meningitis, infection - sepsis, infection - UTI, heart failure, renal failure, respiratory failure, hyperthermia, hypothermia, other Departure Disposition: HOME / SELF CARE / HOMELESS Impression: Primary Impression: UTI (urinary tract infection) Condition: Improved Discharge Instructions: Urinary Tract Infection, Adult, [id number] Referrals: NO PRIMARY CARE PROVIDER (PCP) Prescriptions Nitrofurantoin Macrocrystal (Nitrofurantoin) 100 Mg Capsule 1 CAP PO Q12H for 7 Days, #14 CAP 0 Refills Prov: CHAVA MUSA COUNTER FORMER 12/15/24 Education Educated: Patient Educated regarding: diagnosis Signature Scribe Signature: r5 Attestation: Scribed for Chava Musa Np by Chava Jaimes NP . 12/15/24 20:46 CHAVA MUSA NP Dec 15, 2024 18:02
--- NOTE | 2024-12-15 18:18 | RADIOLOGY REPORT ---
CHEST RADIOGRAPH Indication: altered Technique: Single frontal view of the chest was obtained COMPARISON: None FINDINGS: Lines and Tubes: None Lungs: Clear Pleura: No effusion. No pneumothorax. Cardiomediastinal contours: Unremarkable Bones: Unremarkable IMPRESSION: No acute disease.
[2024-12-15 18:38] LABS: MEAN PLATELET VOLUME 7.5 FL (7.4-10.4); RED CELL DISTRIBUTION WIDTH 14.4 % (11.5-14.5)
[2024-12-15 18:48] LABS: CREATININE 0.98 MG/DL (0.40-0.90); TOTAL CARBON DIOXIDE 30.2 MMOL/L (24-32); eCRCL 48 ML/MIN; eGFR 57 ML/MIN
[2024-12-15 20:02] LABS: LEUKOCYTE ESTERASE ,URINE LARGE (Neg); NITRITES, URINE NEGATIVE (Neg); OCCULT BLOOD,URINE NEGATIVE (Neg)
[2024-12-15 20:16] LABS: UA COLLECTION TYPE STRAIGHT CATH
[2024-12-15 20:21] LABS: SQUAMOUS EPITHELIAL CELL,UR FEW /LPF (FEW); WBC CLUMPS,URINE FEW /HPF (NEGATIVE)
[2024-12-15] MEDS ORDERED: NITR100C PO (20:27)
[2024-12-15] MEDS: CefTRIAXone 2gm/D5W 50ml BAG 50 ML IV ONE (20:52)
[2024-12-15] MEDS: haloperidol lactate 5mg/ml inj IM ONE (20:53)
[2024-12-15] MEDS ORDERED: magnesium sulf-water 2g/50mL 50 ML IV PRN (21:00)
[2024-12-15] MEDS ORDERED: magnesium Cl slow-release 64mg tablet PO PRN (21:00)
[2024-12-15] MEDS ORDERED: potassium Cl 20 mEq SR tablet PO PRN ×2 (21:00)
[2024-12-15] MEDS ORDERED: magnesium sulf-water 4G/100mL 100 ML IV PRN (21:00)
[2024-12-15] MEDS ORDERED: ondansetron/PF 4mg/2ml inj IV PRN (21:00)
[2024-12-15] MEDS ORDERED: mag hydrox/Alum hydrox/simeth 30ml oral suspension PO PRN (21:00)
[2024-12-15] MEDS ORDERED: magnesium hydroxide 30ml (MOM) UD suspension PO PRN (21:00)
[2024-12-15] MEDS ORDERED: potassium Cl 40MEQ/1/2NS 520ml 520 ML IV PRN (21:00)
[2024-12-15] MEDS ORDERED: SERT-434 PO (21:14)
[2024-12-15] MEDS ORDERED: OLAN5TAB75 PO (21:14)
[2024-12-15] MEDS ORDERED: METH1TAB69 PO (21:14)
[2024-12-15] MEDS ORDERED: MIRT-87 PO (21:14)
[2024-12-15] MEDS ORDERED: RISP0.5T80 PO (21:31)
[2024-12-15] MEDS ORDERED: RISP-31 PO (21:31)
--- NOTE | 2024-12-15 21:42 | HISTORY AND PHYSICAL-Residence ---
History & Physical Providers to CC Resident Creating Document: MUNIRA BOUDREAUX, JOHN ~ History of Present Illness Primary Medical Doctor: Dr. Azul Reason for Admit\Complaint: Altered mental status History of Present Illness This is a 64-year-old female patient with a past medical history of progressive behavioral alterations and possible anxiety/depression. The contributed to the majority of the history. She is currently living in an assisted living facility at [facility], she was brought in by her due to complaints of new onset worsening agitation that began about one week ago. Over the last one week, the patient had worsening agitation and irritability due to which her risperidone dosage was increased. Initially, increased risperidone help stabilize the patient but over the last two days, she labs with worsening agitation and irritability. With a concern of possible UTI and metabolic encephalopathy, she was brought into the hospital. The patient is unable to provide accurate history by herself but reports unable to urinate sufficiently with the last two days. Complains of occasional burning pain in the urine but denies urgency or increased frequency. She is on methhippurate chronically at home with a burning pain. Denies any fevers, chills, or abdominal pain. The patient was fully functional until April of 2024 and was a working individual after which she suddenly developed behavioral alterations with increased anxiety, loss of inhibition and, then progressed to loss of appetite and perseverative behaviors. For example, the patient was started on mirtazapine as she has lost her appetite. Since starting the medication, she has been eating excessively including eating off of her neighbors plates and stealing food. The also reports that there has been multiple times when she would walk consistently for hours together until she passed out. Her sister was recently diagnosed with FTD and now lives in a penitentiary due to progressive loss of functionality. The was unable to get her to doctor's appointments, she tried to jump out of the car while on the way to the neurologist and hence has never been evaluated by a neurologist except in August at [facility]. The neurologist had recommended an MRI which was fairly normal and also lumbar puncture. However, the patient is not cooperative for an LP in the requests for unconscious sedation for the procedure as it has been impossible to make it to the neurologist appointments. Allergies: Coded Allergies: Sulfa (Sulfonamide Antibiotics) (Verified Allergy, Mild, RASH, 03/03/12) cephalexin (Unverified Allergy, Mild, rash, 08/19/24) papaya (Verified Adverse Reaction, Severe, ANAPHYLACTIC, 03/03/12) Uncoded Allergies: BEES/WASPS (Adverse Reaction, Severe, ANAPHYLACTIC CARRIES EPI-PEN, 03/03/12) Home Medications Home Medications Active Nitrofurantoin (Nitrofurantoin Macrocrystal) 100 Mg Capsule 1 Cap PO Q12H 7 Days Reported Risperidone 1 Mg Tablet 1 Tab PO BID Risperidone 0.5 Mg Tablet 1 Tab PO DAILY PRN Mirtazapine 15 Mg Tablet 0.5 Tab PO Olanzapine 5 Mg Tablet 1 Tab PO Sertraline HCl 100 Mg Tablet 1 Tab PO DAILY Methenamine Hippurate 1 Gram Tablet 1 Tab PO BID Sertraline HCl 50 Mg Tablet 3 Tab PO HS [vit d] 1,000 PO DAILY Docusate Sodium 250 Mg Capsule 1 Cap PO Q12H 30 Days Diazepam 10 Mg Tablet 1 Tab PO BID PRN Past Medical History Past Medical History Psychiatric disorders New onset progressive Behavioral alterations Past Surgical History Surgical History Comment Appendectomy, shoulder replacement repair, parathyroidectomy in 2021 for cancer Family History Family History: Patient reports no known family medical history. Past Social History Social History Comment Life-long non-smoker, quit drinking alcohol. Denies lifelong use of any drugs. Lives in an assisted living facility. Ambulates independently without any assistive devices Smoking: Non-Smoker Alcohol Use: Sober Drug Use: None Lives with: Spouse Lives In: Home Occupation: disabled ROS Constitutional: Reports: no symptoms reported Eyes: Reports: no symptoms reported ENT: Reports: no symptoms reported Respiratory: Reports: no symptoms reported Cardiovascular: Reports: no symptoms reported Gastrointestinal: Reports: no symptoms reported Genitourinary: Reports: no symptoms reported Female Genitalia: Reports: no reported symptoms Neurological: Reports: no symptoms reported Musculoskeletal: Reports: no symptoms reported Integumentary: Reports: no symptoms reported Allergic/Immunologic: Reports: no symptoms reported Hematologic/Lymphatic: Reports: no symptoms reported Endocrine: Reports: no symptoms reported Psychiatric: Reports: no symptoms reported Exam Vitals: Vital Signs Date Time Temp Pulse Resp B/P (MAP) Pulse Ox O2 Delivery O2 Flow Rate FiO2 12/15/24 21:23 16 12/15/24 21:00 81 144/80 (101) 99 12/15/24 17:38 98.5 General: General: Awake and Alert, no acute distress. Thin and anxious appearing HEENT: Conjunctiva pink, Sclera clear, Mucus Membranes moist. Peripheral vision intact. Vision 6/6 in bilateral eye pérez Resp: Unlabored. Lungs clear to auscultation bilaterally. Heart: Regular Rate and rhythm, normal S1 and S2 without murmur, rub or gallop. Abdomen: Soft and non tender no organomegaly LABORER: Oriented x3- place, person and situation. Not oriented to time. Decreased tone. Sensory and motor exam normal. No cranial nerve deficits. Resting tremors of bilateral upper extremities Gait- staggering gait on exam but as per the nursing staff patient has been walking normally Extremities: No cyanosis,clubbing or edema. Psych: Anxious, no suicidal ideation or intent Skin: Warm and Dry. Diagnostic Data Last Recorded Lab Results: 12/15/24182112/15/241821 Advance Care Planning Advanced Care plannin - 30 Minutes Additional Plan 1. Acute on chronic metabolic encephalopathy: Rapidly progressive behavioral alterations Possibly multifactorial in nature- UTI/neurodegenerative disorders/psychiatric disorders UA reveals large leukocyte esterase and mild WBCs with 1+ bacteriuria- IV Rocephin to be continued for three days Other differentials also include possible FTD- two out of the six criteria disinhibition and perseverative/compulsive behaviors. Additional finding of changes in eating behaviors. MRI from August 2024 was unremarkable for significant atrophy or hypoperfusion. No space-occupying lesions noted. Repeat MRI ordered Tele neurology consult; possible consult with anesthesia/Neurosurgery for unconscious sedation for a lumbar puncture Possibility of underlying neuro degenerative disorders also likely secondary to worsening mental status from increasing dosage of anti psychiatric medications TSH from 08/19/2024 with a normal limits, B12 within normal limits 2. Anxiety: Presents for a panic attack Not currently actively suicidal with no idea or intent Continue close monitoring 3. Polypharmacy: On multiple antipsychotic medications including mirtazapine, risperidone t.i.d. and PRN, diazepam, and sertraline Medications have not been significantly helping and in fact patient has been progressively worsening in terms of behavior Progressive worsening of symptoms with the additional dose of risperidone Neurology consulted 4. Parathyroid malignancy: Status post parathyroidectomy in 2011 Peripheral vision intact; no pancreatitis history MRI head on 09/07 ruled out pituitary masses Lines: PIV Code status: Full code Diet: Regular GI prophylaxis: Protonix DVT prophylaxis: Heparin Deepanjali Vedantam PGY3, Internal medicine resident Attending I saw this patient via the video system and discussed the assessment and plan with the resident team I agree with note as documented Date of Service: Dec 15, 2024 Billing Provider: ANDRA ABBOTT MD, DEEPANJALI, RES Dec 15, 2024 21:42 ANDRA ABBOTT MD Dec 16, 2024 09:28
[2024-12-15 22:00] VITALS: BP 122/72; PULSE 70; RESP 16; TEMP 97.6; O2SAT 98
[2024-12-16] VITALS (8 sets, daily range): BP systolic 114–140; BP diastolic 71–88; PULSE 70–79; RESP 16–18; TEMP 97–98.2; O2SAT 95–99
[2024-12-16 04:51] LABS: CREATININE 0.74 MG/DL (0.40-0.90); PHOSPHORUS 4.2 MG/DL (2.3-4.5); TOTAL CARBON DIOXIDE 27.8 MMOL/L (24-32); eCRCL 64 ML/MIN; eGFR 79 ML/MIN
[2024-12-16 04:53] LABS: MEAN PLATELET VOLUME 7.8 FL (7.4-10.4); RED CELL DISTRIBUTION WIDTH 14.0 % (11.5-14.5)
[2024-12-16] MEDS: K and/or MAG REPLACEMENT MC SCH (08:00)
--- NOTE | 2024-12-16 08:47 | CONSULTATION REPORT ---
History of Present Illness Providers to CC ~ Reason for Admit\\Admit Dx: Altered mental status Refering MD: Dr. Azul Allergies: Coded Allergies: Sulfa (Sulfonamide Antibiotics) (Verified Allergy, Mild, RASH, 03/03/12) cephalexin (Unverified Allergy, Mild, rash, 08/19/24) papaya (Verified Adverse Reaction, Severe, ANAPHYLACTIC, 03/03/12) Uncoded Allergies: BEES/WASPS (Adverse Reaction, Severe, ANAPHYLACTIC CARRIES EPI-PEN, 03/03/12) Home Medications Home Medications Active Nitrofurantoin (Nitrofurantoin Macrocrystal) 100 Mg Capsule 1 Cap PO Q12H 7 Days Reported Risperidone 1 Mg Tablet 1 Tab PO BID Risperidone 0.5 Mg Tablet 1 Tab PO DAILY PRN Mirtazapine 15 Mg Tablet 0.5 Tab PO Olanzapine 5 Mg Tablet 1 Tab PO Sertraline HCl 100 Mg Tablet 1 Tab PO DAILY Methenamine Hippurate 1 Gram Tablet 1 Tab PO BID Sertraline HCl 50 Mg Tablet 3 Tab PO HS [vit d] 1,000 PO DAILY Docusate Sodium 250 Mg Capsule 1 Cap PO Q12H 30 Days Diazepam 10 Mg Tablet 1 Tab PO BID PRN Past Family History Family History: Patient reports no known family medical history. Physical Exam Last Vital Signs Recorded: Temperature: 97.4, Source: Oral, Heart Rate: 70, Respiratory Rate: 18, BP: 140/88, Pulse Oximetry: 99, Weight: 53.000 Results Diagram Lab Result Diagram: 12/16/248 12/16/24417 Assessment/Plan Additional Plan [place] [facility] Note # Demographics Consult Type: General Neurology Patient Location: Inpatient First Name: Linn Last Name: David Date of : 1960 Age: 64 Gender: Female Facility: [facility] Time of Initial Page ([place] Time): 12/16/2024 07:24 First Contact with Site ([place] Time): 12/16/2024 07:25 # HPI History: 64 y/o woman admitted with AMS in the setting of behavioral alterations. Noted to have worsening agitation over the last week for which Risperidone was increased. Behavioral alterations started in April 2024. Previous visit with a Neurologist recommended a brain MRI and lumbar puncture--lumbar puncture not yet performed. Does have a sister recently diagnosed with FTD. Patient states she has not seen anyone. Prior to April was working and independent, but says her did the cooking because she had difficulty making things he likes. Since April she has been in a facility due to having attacks---would go outside and "act like a ninja warrior." In the hospital now for a UTI but is not having symptoms "so I don't really know why I am here." Has not had any seizures. # Scores Time of exam and NIHSS ([place] Time): 12/16/2024 07:45 Level of Consciousness 1a: [0] = Alert; keenly responsive LOC Questions 1b: [0] = Answers both questions correctly LOC Commands 1c: [0] = Performs both tasks correctly Best Gaze 2: [0] = Normal Visual 3: [0] = No visual loss Facial Palsy 4: [0] = Normal symmetrical movements Motor Arm Left 5a: [0] = No drift Motor Arm Right 5b: [0] = No drift Motor Leg Left 6a: [0] = No drift Motor Leg Right 6b: [0] = No drift Limb Ataxia 7: [0] = Absent Sensory 8: [0] = Normal Best Language 9: [0] = No aphasia Dysarthria 10: [0] = Normal Extinction and Inattention 11: [0] = No abnormality NIHSS Total: 0 # Assessment Impression: Behavior changes since 04/2024, admitted with worsened behavior in setting of UTI. Acute worsening likely due to UTI # Plan Other: - If patient has any neurological deterioration please call me back immediately Additional Recommendations: B12 and TSH normal in 08/2024. MRI brain pending Consider RPR. Can also consider EEG and lumbar puncture (for routine studies as well as paraneoplastic and NMDA antibodies) if wanting to continue her investigations for her overall changes since April while inpatient. # Logistics Attestation of consult completion: The patient is located at: [facility]. Facility staff participated in the visit. I performed this telemedicine visit from my offsite office utilizing interactive 2 way audio and visual telecommunication technology at the request of the onsite inpatient provider. Total time spent in telemedicine encounter: I spent 20 minutes reviewing clinical data and/or imaging, obtaining history, examining the patient, communicating with the onsite care team, and in preparation of this report. # Demographics First Name: Linn Last Name: David Facility: [facility] ARTURO BEAVERS MD Dec 16, 2024 08:47
[2024-12-16] MEDS: CefTRIAXone/D5W-Rocephin 1gm 50 ML IV SCH (09:33)
[2024-12-16] MEDS: docusate sod 100mg capsule PO SCH (09:34)
[2024-12-16] MEDS: heparin, porcine 5000 units/ml vial SQ SCH (09:39)
[2024-12-16] MEDS ORDERED: RISP1TAB69 PO (11:42)
[2024-12-16] MEDS ORDERED: CALC300T4 PO (12:02)
[2024-12-16] MEDS ORDERED: IBUP-1594 PO (12:02)
[2024-12-16] MEDS ORDERED: POLY17PO10 PO (12:02)
[2024-12-16] MEDS ORDERED: CIPR-259 PO (12:42)
[2024-12-16] MEDS ORDERED: RISP-32 PO (12:42)
--- NOTE | 2024-12-16 14:41 | PROGRESS NOTE- Residence ---
Progress Note - Resident Providers to CC Resident Creating Document: CLARISA MONDRAGON RES ~ Antibiotic Timeout Antibiotic Ordered?: Yes Subjective Patient with a history and symptoms consistent with frontotemporal dementia (agitation, irritability, disinhibition, high per orally daily, compulsive walking, family history, and prior MRI showing atrophy) was seen at bedside with her present. She reports feeling "a little better" and states she came in because she "got freaked out." Has been became frustrated with the informed MRI was not needed an outpatient follow up was recommended; he initially wanted to leave but later agreed to stay one more night. Patient is also being treated for urinary tract infection. Agree with the admitting residents working diagnosis of FTD. Objective Vital Signs Date Time Temp Pulse Resp B/P (MAP) Pulse Ox O2 Delivery O2 Flow Rate FiO2 12/16/24 10:12 18 99 Room Air 12/16/24 10:00 97.0 77 114/71 (85) General: Awake and Alert, no acute distress. HEENT: Conjunctiva pink, Sclera clear, Mucus Membranes moist. Neck: Supple without masses and tenderness. Resp: Unlabored. Lungs clear to auscultation bilaterally. Heart: Regular Rate and rhythm, normal S1 and S2 without murmur, rub or gallop. Abdomen: Soft and non tender no organomegaly Extremities: No cyanosis,clubbing or edema. Skin: Warm and Dry. Result Diagram: 12/16/2441712/16/24417 Advance Care Planning Advanced Care plannin - 30 Minutes Assessment Assessment 1. Acute on chronic metabolic encephalopathy Likely precipitated by ongoing Urinary tract infection/UTI UA suggestive of UTI, which could have likely exacerbated her ongoing dementia Continue ceftriaxone 1 g IV daily She will be discharged with a short course of ciprofloxacin 500 mg twice daily 2. Rapidly progressive cognitive decline with behavior altercation Likely frontotemporal dementia, behavioral variant (bvFTD) Patient was fully functional eight months ago Presentation; agitation, irritability, disinhibition, high per orally daily, compulsive walking, family history Prior MRI showing atrophy Tele neurology evaluated the patient and recommended workup including RPR and MRI Continue sertraline for disinhibition, irritability, compulsive behavior Risperidone dose adjusted; 2 mg q.h.s. in 2 mg daily as needed Disposition: Outpatient neurology follow up. Missed October appointment, rescheduled in February of this year. 3. Parathyroid malignancy, stable Status post parathyroidectomy in 2011 Code status: Full code DVT prophylaxis: Heparin Clarisa Mondragon Internal Medicine Resident, PGY-3 Date of Service: Dec 16, 2024 Billing Provider: VIRGINIA BENTON MD Common Visit Codes: 60493-[id number] INP/OBS CARE(HIGH) CLARISA MONDRAGON, RES Dec 16, 2024 14:41 VIRGINIA BENTON MD Dec 17, 2024 09:45
[2024-12-17 05:00] VITALS: BP 160/80; PULSE 81; RESP 18; TEMP 97.4; O2SAT 99
[2024-12-17 05:50] LABS: MEAN PLATELET VOLUME 7.7 FL (7.4-10.4); RED CELL DISTRIBUTION WIDTH 14.1 % (11.5-14.5)
[2024-12-17 06:18] LABS: CREATININE 0.80 MG/DL (0.40-0.90); PHOSPHORUS 4.7 MG/DL (2.3-4.5); TOTAL CARBON DIOXIDE 28.8 MMOL/L (24-32); eCRCL 59 ML/MIN; eGFR 72 ML/MIN
--- NOTE | 2024-12-17 10:19 | DISCHARGE SUMMARY-Residence ---
Discharge Summary Providers to Resident Creating Document: CLARISA FORMAN, RES ~ Discharge Summary Admission Diagnosis: UTI, METABOLIC ENCEPHALOPATHY Hospital Course DATE OF ADMISSION: December 15, 2024 DATE OF DISCHARGE: December 17, 2024 Discharge Diagnosis\Comment: Acute on chronic metabolic encephalopathy Urinary tract infection Rapidly progressive cognitive decline with behavior altercation, Likely frontotemporal dementia, behavioral variant (bvFTD) Anxiety/depression Parathyroid malignancy, S/P parathyroidectomy in 2011 Operations\Procedures: None Consultants: None Complications: None Condition on DC: Stable New Medications: Ciprofloxacin HCl (Cipro) 500 Mg Tablet 1 TAB PO Q12H for 3 Days, #6 TAB Risperidone (Risperidone) 2 Mg Tablet 1 TAB PO HS for 30 Days, #60 TAB 0 Refills Take Risperidone 2 mg tablet every night, and as needed for agitation. Continued Medications: Calcium Carbonate* (Tums*) 300 Mg Tab.chew 2 TAB PO PRN for daily, TAB.CHEW Diazepam (Diazepam) 10 Mg Tablet 1 TAB PO BID PRN for for anxiety/agitation Docusate Sodium (Docusate Sodium) 250 Mg Capsule 1 CAP PO Q12H for constipation for 30 Days, #60 CAP 0 Refills Ibuprofen (Motrin Ib) 200 Mg Tablet 1 TAB PO Q4H, TAB 0 Refills Mirtazapine (Mirtazapine) 15 Mg Tablet 0.5 TAB PO Polyethylene Glycol 3350* (Miralax*) 1 Packet Packet 1 PKT PO PRN PRN for constipation, PKT dissolve in water Sertraline HCl (Sertraline HCl) 100 Mg Tablet 1 TAB PO DAILY for depressive disorder Discontinued Medications: Risperidone (Risperidone) 0.5 Mg Tablet 1 TAB PO DAILY PRN for for anxiety/agitation Risperidone (Risperidone) 1 Mg Tab.rapdis 1 TAB PO TID, TAB 0 Refills Discharge Summary: Hospital course The patient is a 64-year-old female who was fully functional until approximately eight months ago (April 2024). Since then, she has experienced rapidly progressive cognitive decline with behavioral altercation, including agitation, irritability, disinhibition, hyper orality, and compulsive walking. Family history is positive for frontotemporal dementia in her sister. Tele neurology evaluated the patient during this admission. MRI during last admission demonstrated atrophy consistent with frontotemporal dementia, behavioral variant. Recommendations included outpatient follow up, including RPR in repeat MRI and ongoing neurology follow up. For behavioral management, the patient has been treated with sertraline for irritability, disinhibition, and compulsive be havior. Additionally, she was also noted to have acute on chronic metabolic encephalopathy in the setting of urinary tract infection. UA was consistent with infection. She was treated with IV ceftriaxone during admission, and transition to a short course of ciprofloxacin upon discharge. Risperidone was also continued, with the dose adjusted at 2 mg q.h.s. in 2 mg daily p.r.n. for agitation. Discharge course: The patient's expressed a strong desire for inpatient MRI, which was deemed unnecessary at this time. Further imaging when workup will be pursued as outpatient. She resides at [facility]. She was discharged here in stable condition. Discharge Instructions: Follow up: 1. NEUROLOGY: Follow up with neurologist outpatient as scheduled. 2. PCP: Within 1-2 weeks for medical review and coordination of care 3. Psychiatrist: For risperidone and other as anti psychiatric medications dose adjustments Maintain structured daily routine Avoid overstimulation; use, redirection Monitor closely for wandering, unsafe behavior, and aggression When to seek urgent care: Sudden change in mental status or neurological function Severe agitation, aggression, or unsafe behavior Physical Exam: General: Awake and Alert, no acute distress. HEENT: Conjunctiva pink, Sclera clear, Mucus Membranes moist. Neck: Supple without masses and tenderness. Resp: Unlabored. Lungs clear to auscultation bilaterally. Heart: Regular Rate and rhythm, normal S1 and S2 without murmur, rub or gallop. Abdomen: Soft and non tender no organomegaly Extremities: No cyanosis,clubbing or edema. Skin: Warm and Dry. *Problems/Diagnosis: (1) UTI (urinary tract infection) Status: Acute Total Time Spent on D/C: Up to 30 Minutes Date of Service: Dec 17, 2024 Billing Provider: VIRGINIA BENTON MD Common Visit Codes: 39209-POT/OBS DISCH DAY >30min CLARISA FORMAN, RES Dec 17, 2024 10:07 VIRGINIA BENTON MD Dec 18, 2024 08:59
[2024-12-17 10:56] VITALS: BP 132/62; PULSE 81; RESP 14; TEMP 98.1; O2SAT 99
== END 2024-12-17 13:08 | disposition home health service (06) | DRG 689 ==
LOC: ER 17:34 → ED HOLD 21:01 → SUR 3N 22:00
PROVIDERS: ADMIT Internal Medicine; ATTEND Internal Medicine
DX: N39.0 Urinary tract infection, site not specified (principal); G93.41 Metabolic encephalopathy; F02.811 Dementia in other diseases classified elsewhere, unspecified severity, with agitation; F02.83 Dementia in other diseases classified elsewhere, unspecified severity, with mood disturbance; F02.84 Dementia in other diseases classified elsewhere, unspecified severity, with anxiety; G31.09 Other frontotemporal neurocognitive disorder; I10 Essential (primary) hypertension; Z88.2 Allergy status to sulfonamides; Z88.1 Allergy status to other antibiotic agents; Z79.899 Other long term (current) drug therapy; Z90.49 Acquired absence of other specified parts of digestive tract; Z85.89 Personal history of malignant neoplasm of other organs and systems
CPT/HCPCS: 36415; 71045; 80048; 81001; 83605; 83735; 84100; 84145; 85025; 87040; 87077; 87081; 87088; 87186; 96360; 96372; 99285; A6258; C1758; G0378; J0696; J1200; J1630; J1644; J2060; Q0177